=== PATIENT | female | born 1975 | race Caucasian/White ===

== ENCOUNTER 2019-01-25 17:28 | Emergency (ER) | payer OTHER, MEDICAID ==
[~2019-01-25] VITALS: Ht 175.3 cm; Wt 54.4 kg
[~2019-01-25 17:28] MED LIST: AMBIEN 10 MG TA10 MG; DEPAKOTE 250MG250 M1 PO; DESYREL50 MG; HORMONE PILL; IBUPROFEN 400400 M2 PO; IBUPROFEN 800800 MG PO; PERCOCET 5-3251 EACH PO; PERCOCET PO; SEROQUEL XR200 MG; TRAZODONE HCL100 MG PO; ULTRAM 50MG TAB50 MG PO; XANAX 0.5 MG0.5 MG; ZOFRAN 4 MG ORAL4 MG PO; ZOLOFT100 MG
[2019-01-25 17:41] VITALS: BP 125/84
[2019-01-25] MEDS ORDERED: PERCOCET PO (18:06)
== END 2019-01-25 18:39 | disposition home or self-care (01) ==
LOC: M.ERS 17:28
DX: S90.31XA Contusion of right foot, initial encounter (principal); G43.909 Migraine, unspecified, not intractable, without status migrainosus; F31.9 Bipolar disorder, unspecified; F41.9 Anxiety disorder, unspecified; F17.210 Nicotine dependence, cigarettes, uncomplicated; Z87.81 Personal history of (healed) traumatic fracture; Z90.710 Acquired absence of both cervix and uterus; Z88.5 Allergy status to narcotic agent; Z88.8 Allergy status to other drugs, medicaments and biological substances; W18.39XA Other fall on same level, initial encounter; Y93.89 Activity, other specified; Y92.89 Other specified places as the place of occurrence of the external cause; Y99.8 Other external cause status